=== PATIENT | male | born 1970 | race Caucasian/White ===

== ENCOUNTER 2019-02-09 23:13 | Emergency (ER) | payer OTHER ==
[~2019-02-09] VITALS: Ht 180.3 cm; Wt 70.3 kg
[2019-02-09 23:18] VITALS: Ht 180.3 cm; Wt 70.3 kg
[2019-02-09 23:51] VITALS: BP 141/93
== END 2019-02-09 23:51 | disposition other institution (70) ==
LOC: ED 23:13
DX: F10.129 Alcohol abuse with intoxication, unspecified (principal); Y90.9 Presence of alcohol in blood, level not specified